=== PATIENT | male | born 1980 | race Caucasian/White ===

== ENCOUNTER → 2019-09-10 | Day surgery (SDC) | payer OTHER ==
[~2019-09-10] MED LIST: NORCO 5-325 TA1 EAC1 PO; ZOCOR 10 MG TAB10 M1 PO
--- NOTE | ~2019-09-10 | OP ---
[address] [address] OPERATIVE REPORT Name: GAGANLISHA AMAYA Room: [facility]#: [id number] Admission: 09/10/19 Attend Phys: Tuan Campbell II Discharge: Date of : 78 Report #: [id number] THIS REPORT FOR: //name// cc: Richard Fuller Ghaison F. DO ~ THIS REPORT FOR: //name// CC: Richard Campbell DATE OF SERVICE: 09/10/2019 PREOPERATIVE DIAGNOSIS: Right knee medial meniscus tear. POSTOPERATIVE DIAGNOSES: 1. Right knee medial meniscus tear. 2. Lateral meniscus tear. 3. 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 PROCEDURES PERFORMED: 1. Right knee arthroscopic surgery with partial medial and lateral meniscectomy. 2. Abrasion chondroplasty of the lateral femoral condyle, focal osteochondral defect down to bleeding bone. SURGEON: Tuan Campbell II, DO DISEASE INTERVENTION SPECIALIST: CHING Saldana ANESTHESIA: Per operative record. ESTIMATED BLOOD LOSS: Minimal. ANTIBIOTICS: Per operative record. DRAINS: None. COMPLICATIONS: None. CONDITION OF THE PATIENT: Stable to recovery room. DESCRIPTION OF PROCEDURE: The patient was taken to the operative suite and placed supine on the operative table, given appropriate anesthesia. The patient's affected lower extremity sterilely prepped and draped with well-padded knee arthroscopic snider. Surgery began by medial and lateral portal incision. [address] [address] OPERATIVE REPORT Name: LISHA FARAH Room: [facility].#: [id number] Admission: 09/10/19 Attend Phys: Tuan Campbell II Discharge: Date of : 78 Report #: [id number] The arthroscope was advanced in the joint. There was grade 3 chondromalacia in the lateral femoral condyle with focal osteochondral defect. Utilizing shaver, an abrasion chondroplasty was performed down to bleeding bone and then smoothed utilizing Coblation wand in appropriate fashion. A medial meniscus was shown to have a tear to the medial margin extending around to the medial aspect of the joint. Utilizing a shaver, a partial medial meniscectomy was performed and then smoothed utilizing Coblation wand in appropriate fashion. Lateral meniscus was probed and shown to have a tear to the lateral margin extending around to the lateral aspect of the joint. Utilizing shaver, a partial meniscectomy was performed on the lateral meniscus and then smoothed using Coblation wand in appropriate fashion. ACL and PCL were intact. There were shown to be 3 small loose bodies in the anterior aspect of the knee, near the insertion of the ACL. These were removed utilizing graspers and final images were taken with the camera on the back table. The knee was then drained of arthroscopic fluid, closed with 4-0 nylon in simple fashion. Dermabond and sterile dressing applied. The patient transported to recovery room in stable condition. Counts were correct throughout the procedure. By: [id number] Campbell II, DO /nt
== END | disposition home or self-care (01) ==
LOC: M.SUR 11:14
DX: S83.241A Other tear of medial meniscus, current injury, right knee, initial encounter (principal); S83.281A Other tear of lateral meniscus, current injury, right knee, initial encounter; M94.261 Chondromalacia, right knee; M21.861 Other specified acquired deformities of right lower leg; M25.461 Effusion, right knee; J45.909 Unspecified asthma, uncomplicated; E78.00 Pure hypercholesterolemia, unspecified; Z98.890 Other specified postprocedural states; Z79.899 Other long term (current) drug therapy; X58.XXXA Exposure to other specified factors, initial encounter; Y93.89 Activity, other specified; Y92.89 Other specified places as the place of occurrence of the external cause; Y99.8 Other external cause status